=== PATIENT | female | born 1965 | race African-American/Black ===

== ENCOUNTER 2017-01-14 10:24 | Outpatient (CLI) | payer OTHER ==
--- NOTE | 2017-01-14 11:08 | XRay Report ---
CHEST 2 VIEWS INDICATION: Small mass right lung. COMPARISON: None similar. FINDINGS: PA and lateral chest radiographs demonstrate normal cardiomediastinal silhouette. Grossly clear lungs. Intact bones. CONCLUSION: No acute disease in the chest. Correlation with prior imaging or its report that raised the concern for a right lung mass would be further helpful, if available. Thank you for the opportunity to participate in this patient's care.
== END 2017-01-14 10:25 | disposition home or self-care (01) ==
LOC: XRAY 10:24
PROVIDERS: ATTEND General Practice
DX: R91.8 Other nonspecific abnormal finding of lung field (principal)
CPT/HCPCS: 71020

== ENCOUNTER 2017-01-21 08:49 | Outpatient (CLI) | payer OTHER ==
--- NOTE | 2017-01-22 09:48 | Mammography Report ---
BILATERAL MAMMOGRAM: FINDINGS: The breast tissue is heterogeneously dense, which could obscure detection of small masses (approximately 50%-75% glandular). No mass, distortion, suspicious calcification, or skin change is seen. There are no significant changes when compared to her prior study in October 2015. CAD was utilized. IMPRESSION: Negative mammogram. There is no mammographic evidence of malignancy. RECOMMENDATION: Follow-up per ACS guidelines. BI-RADS CATEGORY: 1 = Negative ACR BI-RADS MAMMOGRAPHIC CODES: 0 = Needs additional imaging evaluation; 1 = Negative; 2 = Benign; 3 = Probably benign; 4 = Suspicious; 5 = Malignant; 6 = Known biopsy-proven malignancy COMMENT: 1. Dense breast tissue, i.e., adenosis, fibrocystic changes, etc., may obscure an underlying neoplasm. 2. Approximately 10% of cancers are not detected with mammography. 3. A negative mammography report should not delay biopsy if a clinically suspicious mass is present. COMMENT: Patient follow-up letters are generated in [employer].
== END 2017-01-21 08:50 | disposition home or self-care (01) ==
LOC: MERGE 08:49 → MAMMO 08:49
PROVIDERS: ATTEND Nurse Practitioner Primary Care
DX: Z12.31 Encounter for screening mammogram for malignant neoplasm of breast (principal)
CPT/HCPCS: 77067; G0202

== ENCOUNTER 2018-04-28 08:08 | Outpatient (CLI) | payer OTHER ==
--- NOTE | 2018-04-30 09:10 | Mammography Report ---
BILATERAL DIGITAL SCREENING MAMMOGRAM with CAD: 04/28/18 08:08:00 CLINICAL: Routine screening. COMPARISON:01/21/17 FINDINGS: The breasts are heterogeneously dense, which may obscure small masses.A left asymmetry with architectural distortion requires additional imaging. No suspicious desiccation. The right breast is negative. IMPRESSION: Left asymmetry and architectural distortion requiring further workup. BI-RADS CATEGORY: 0 -- Additional Imaging Evaluation Required RECOMMENDATION: Recall for left mediolateral , spot compression CC and MLO views and left breast ultrasound if needed. ACR BI-RADS MAMMOGRAPHIC CODES: 0 = Needs additional imaging evaluation; 1 = Negative; 2 = Benign; 3 = Probably benign; 4 = Suspicious; 5 = Malignant; 6 = Known biopsy-proven malignancy COMMENT: 1. Dense breast tissue, i.e., adenosis, fibrocystic changes, etc., may obscure an underlying neoplasm. 2. Approximately 10% of cancers are not detected with mammography. 3. A negative mammography report should not delay biopsy if a clinically suspicious mass is present. COMMENT: Patient follow-up letters are generated via our [employer] application.
== END 2018-04-28 08:09 | disposition home or self-care (01) ==
LOC: SPVWC 08:08
PROVIDERS: ATTEND Hospitalist
DX: Z12.31 Encounter for screening mammogram for malignant neoplasm of breast (principal)
CPT/HCPCS: 77067

== ENCOUNTER 2018-05-19 08:20 | Outpatient (CLI) | payer OTHER ==
--- NOTE | 2018-05-19 09:02 | Mammography Report ---
LEFT DIGITAL DIAGNOSTIC MAMMOGRAM : 05/19/18 08:20:00 CLINICAL: Recalled for asymmetry and architectural distortion. COMPARISON:04/28/18 screening FINDINGS: Additional mammographic views were performed and are negative. IMPRESSION: Negative Mammogram. BI-RADS CATEGORY: 1 -- Negative RECOMMENDATION: Routine mammographic screening in one year. ACR BI-RADS MAMMOGRAPHIC CODES: 0 = Needs additional imaging evaluation; 1 = Negative; 2 = Benign; 3 = Probably benign; 4 = Suspicious; 5 = Malignant; 6 = Known biopsy-proven malignancy COMMENT: 1. Dense breast tissue, i.e., adenosis, fibrocystic changes, etc., may obscure an underlying neoplasm. 2. Approximately 10% of cancers are not detected with mammography. 3. A negative mammography report should not delay biopsy if a clinically suspicious mass is present. COMMENT: Patient follow-up letters are generated via our [employer] application.
== END 2018-05-19 08:21 | disposition home or self-care (01) ==
LOC: SPVWC 08:20
PROVIDERS: ATTEND Hospitalist
DX: R92.8 Other abnormal and inconclusive findings on diagnostic imaging of breast (principal)

== ENCOUNTER 2019-04-29 07:23 | Outpatient (CLI) | payer OTHER ==
--- NOTE | 2019-04-29 09:52 | Mammography Report ---
BILATERAL DIGITAL SCREENING MAMMOGRAM with CAD : 04/29/19 07:23:00 CLINICAL: Routine screening. COMPARISON:04/28/18 and 01/21/17 FINDINGS: The breasts are heterogeneously dense, which may obscure small masses.A few bilateral benign calcifications, some of which are vascular. No mass, architectural distortion or suspicious calcifications. IMPRESSION: No mammographic evidence of malignancy. BI-RADS CATEGORY: 2 -- Benign RECOMMENDATION: Routine mammographic screening in one year. COMMENT: Patient follow-up letters are generated by our [employer] application.
== END 2019-04-29 07:24 | disposition home or self-care (01) ==
LOC: MAMMO 07:23
PROVIDERS: ATTEND Hospitalist
DX: Z12.31 Encounter for screening mammogram for malignant neoplasm of breast (principal)
CPT/HCPCS: 77067

== ENCOUNTER 2020-06-08 07:45 | Outpatient (CLI) | payer OTHER ==
--- NOTE | 2020-06-08 08:50 | Mammography Report ---
DIGITAL SCREENING MAMMOGRAM WITH CAD, 06/08/2020 INDICATION: Routine screening mammography. TECHNIQUE: Digital bilateral 2D mammography was obtained in the craniocaudal and mediolateral obliq ue projections. This examination was interpreted with the benefit of Computer-Aided Detection analysi s. COMPARISON: 04/29/2019, 05/19/2018, 04/28/2018 FINDINGS: Breast Density: The breasts are heterogeneously dense, which may obscure small masses. There is no evidence of dominant mass, suspicious calcifications or architectural distortion in eithe r breast. IMPRESSION: Follow up recommendation: Routine yearly BI-RADS Category 1: Negative. A "normal" or negative report should not discourage follow up or biopsy of a clinically significant f inding. A written summary of these findings will be mailed to the patient. The patient will be entered into a mammography reporting system which will generate a reminder letter for the patient's next appointmen t at the appropriate interval. The [employer] recommends yearly mammograms starting at age 40 and continuing as l zeb as a woman is in good health. Breast MRI is recommended for women with an approximate 20-25% or greater lifetime risk of breast cancer, including women with a strong family history of breast or ova caden cancer or who have been treated for Hodgkin's disease. Signer Name: Duane Hameed MD Signed: 06/08/2020 8:46 AM Workstation Name: [id number]
== END 2020-06-08 07:46 | disposition home or self-care (01) ==
LOC: MAMMO 07:45
PROVIDERS: ATTEND Hospitalist
DX: Z12.31 Encounter for screening mammogram for malignant neoplasm of breast (principal)
CPT/HCPCS: 77067